=== PATIENT | male | born 1945 | race Caucasian/White ===

== ENCOUNTER 2016-09-20 12:23 | Outpatient (CLI) ==
[2016-07-16 18:51] VITALS: BMI 21.9
--- NOTE | 2016-09-20 13:29 | DI ---
EXAM: Right wrist three-view HISTORY: Pain in right wrist COMPARISON: None FINDINGS: No fracture or dislocation. Severe osteoarthritis of the radiocarpal articulations with complete loss of joint space at the radial scaphoid articulation. Scattered osteoarthritis througho ut the wris with complete or near complete loss of joint space at the capitate lunate articulation w ith mild widening scapholunate distance, may represent early changes of scapholunate advanced collap se. Mild additional areas of mild scattered osteoarthritic change of the wrist and first CMC joint. Atherosclerosis. IMPERSSION: Osteoarthritis with severe osteoarthritis radial scaphoid articulation. Additionally, there are findings as described that may suggest early changes of scapholunate advanced collapse.
== END 2016-09-20 12:24 | disposition home or self-care (01) ==
LOC: RAD 12:23
PROVIDERS: ATTEND General Practice
DX: M25.531 Pain in right wrist (principal)

== ENCOUNTER 2016-10-30 08:28 | Outpatient (CLI) ==
[2016-07-16 18:51] VITALS: BMI 21.9
[2016-10-30 15:11] LABS: BILIRUBIN,URINE Negative (NEGATIVE); KETONES,URINE Negative (NEGATIVE); LEUKOCYTE ESTERASE ,URINE Negative (NEGATIVE); NITRITE,URINE Negative (NEGATIVE); PROTEIN,URINE Negative (NEGATIVE); URINE, BLOOD Negative (NEGATIVE)
[2016-10-30 15:12] LABS: ADD URINE MICROSCOPIC NO
[2016-10-30 15:13] LABS: BASOPHILS % (AUTO) 0.4 % (0.0-3.0); EOSINOPHILS # (AUTO) 0.1 K/ul (0.0-0.7); EOSINOPHILS % (AUTO) 1.9 % (0.0-7.0); HEMATOCRIT 37.6 % (42.0-52.0); HEMOGLOBIN 12.8 g/dl (14.0-18.0); IMMATURE GRANULOCYTE % (AUTO) 0.1 % (0.0-5.0); LYMPHOCYTES # (AUTO) 2.9 K/uL (0.60-3.4); MEAN CORPUSCULAR HEMOGLOBIN 29.2 pg (27.0-31.0); MEAN CORPUSCULAR VOLUME 85.6 fl (80.0-94.0); MONOCYTES # (AUTO) 0.7 K/uL (0.4-2.0); MONOCYTES % (AUTO) 9.9 (0-10); NEUTROPHILS # (AUTO) 3.1 K/ul (2.0-6.9); NEUTROPHILS % (AUTO) 45.7; PLATELET COUNT 257 10^3/uL (140-440); RED BLOOD COUNT 4.39 10^6/ul (4.70-6.10); WHITE BLOOD COUNT 6.86 K/ul (4.2-10.2)
[2016-10-30 16:35] LABS: ALBUMIN 3.9 g/dL (3.4-5.0); ALBUMIN/GLOBULIN RATIO 1.22; BILIRUBIN,TOTAL 0.42 mg/dL (0.00-1.20); BUN/CREATININE RATIO 12.39; CALCIUM 9.4 mg/dL (8.2-10.2); CHOL/HDL RATIO 3.1 (4.5-6.4); CREATININE 1.21 mg/dL (0.60-1.10); TOTAL PROTEIN 7.1 g/dL (5.8-8.1)
== END 2016-10-30 08:29 | disposition home or self-care (01) ==
LOC: LAB 08:28
PROVIDERS: ATTEND General Practice
DX: E11.9 Type 2 diabetes mellitus without complications (principal); E03.9 Hypothyroidism, unspecified; I10 Essential (primary) hypertension; D64.9 Anemia, unspecified; E10.42 Type 1 diabetes mellitus with diabetic polyneuropathy; K59.00 Constipation, unspecified; Z79.899 Other long term (current) drug therapy; Z12.5 Encounter for screening for malignant neoplasm of prostate
CPT/HCPCS: 36415; 80053; 80061; 81001; 83036; 84443; 85025

== ENCOUNTER 2016-11-07 11:11 | Outpatient (CLI) ==
[2016-07-16 18:51] VITALS: BMI 21.9
== END 2016-11-07 11:12 | disposition home or self-care (01) ==
LOC: LAB 11:11
PROVIDERS: ATTEND General Practice
DX: E03.9 Hypothyroidism, unspecified (principal); E10.9 Type 1 diabetes mellitus without complications; I10 Essential (primary) hypertension
CPT/HCPCS: 36415; 84443

== ENCOUNTER 2016-12-05 09:23 | Outpatient (CLI) ==
[2016-07-16 18:51] VITALS: BMI 21.9
[2016-12-05 09:53] LABS: ANION GAP 12.7; BUN/CREATININE RATIO 12.5; CREATININE 1.28 mg/dL (0.60-1.10); POTASSIUM 4.7 mmol/L (3.5-5.1)
== END 2016-12-05 09:24 | disposition home or self-care (01) ==
LOC: LAB 09:23
PROVIDERS: ATTEND Nurse Anesthetist, Certified Registered
DX: Z01.812 Encounter for preprocedural laboratory examination (principal)
CPT/HCPCS: 36415; 80048

== ENCOUNTER 2016-12-13 11:44 | Outpatient (CLI) ==
[2016-07-16 18:51] VITALS: BMI 21.9
== END 2016-12-13 11:45 | disposition home or self-care (01) ==
LOC: LAB 11:44
PROVIDERS: ATTEND General Practice
DX: E03.9 Hypothyroidism, unspecified (principal)
CPT/HCPCS: 36415; 84443

== ENCOUNTER 2017-01-30 12:00 | Outpatient (CLI) ==
[2016-07-16 18:51] VITALS: BMI 21.9
[2017-01-30 13:28] LABS: BILIRUBIN,URINE Negative (NEGATIVE); KETONES,URINE Negative (NEGATIVE); LEUKOCYTE ESTERASE ,URINE Negative (NEGATIVE); NITRITE,URINE Negative (NEGATIVE); PROTEIN,URINE Negative (NEGATIVE); URINE, BLOOD Negative (NEGATIVE)
[2017-01-30 13:43] LABS: ADD URINE MICROSCOPIC NO
[2017-01-30 13:48] LABS: BASOPHILS # (AUTO) 0.1 K/uL (0-0.2); BASOPHILS % (AUTO) 0.9 % (0.0-3.0); EOSINOPHILS # (AUTO) 0.1 K/ul (0.0-0.7); EOSINOPHILS % (AUTO) 2.2 % (0.0-7.0); HEMOGLOBIN 12.7 g/dl (14.0-18.0); IMMATURE GRANULOCYTE % (AUTO) 0.2 % (0.0-5.0); LYMPHOCYTES # (AUTO) 2.6 K/uL (0.60-3.4); LYMPHOCYTES % (AUTO) 44.7 (10.0-50.0); MEAN CORPUSCULAR HEMOGLOBIN 28.7 pg (27.0-31.0); MEAN CORPUSCULAR HGB CONC 33.4 (31.8-35.4); MONOCYTES # (AUTO) 0.5 K/uL (0.4-2.0); MONOCYTES % (AUTO) 9.2 (0-10); NEUTROPHILS # (AUTO) 2.5 K/ul (2.0-6.9); NEUTROPHILS % (AUTO) 42.8; PLATELET COUNT 250 10^3/uL (140-440); RED BLOOD COUNT 4.42 10^6/ul (4.70-6.10); WHITE BLOOD COUNT 5.86 K/ul (4.2-10.2)
[2017-01-30 14:04] LABS: ALBUMIN 3.8 g/dL (3.4-5.0); ALBUMIN/GLOBULIN RATIO 1.31; ANION GAP 12.9; BILIRUBIN,TOTAL 0.59 mg/dL (0.00-1.20); BUN/CREATININE RATIO 19.84; CALCIUM 9.1 mg/dL (8.2-10.2); CHOL/HDL RATIO 2.7 (4.5-6.4); CREATININE 1.26 mg/dL (0.60-1.10); POTASSIUM 4.9 mmol/L (3.5-5.1); TOTAL PROTEIN 6.7 g/dL (5.8-8.1)
== END 2017-01-30 12:01 | disposition home or self-care (01) ==
LOC: LAB 12:00
PROVIDERS: ATTEND General Practice
DX: E03.9 Hypothyroidism, unspecified (principal); E10.9 Type 1 diabetes mellitus without complications; I10 Essential (primary) hypertension; D64.9 Anemia, unspecified; Z79.899 Other long term (current) drug therapy
CPT/HCPCS: 36415; 80053; 80061; 81001; 83036; 84443; 85025

== ENCOUNTER 2017-02-19 08:59 | Outpatient (CLI) ==
[2016-07-16 18:51] VITALS: BMI 21.9
[2017-02-19 15:44] LABS: ALBUMIN 3.8 g/dL (3.4-5.0); ANION GAP 15.7; BUN/CREATININE RATIO 15.65; CALCIUM 9.2 mg/dL (8.2-10.2); CREATININE 1.15 mg/dL (0.60-1.10); PHOSPHORUS 3.2 mg/dL (2.3-3.7); POTASSIUM 4.7 mmol/L (3.5-5.1)
== END 2017-02-19 09:00 | disposition home or self-care (01) ==
LOC: LAB 08:59
PROVIDERS: ATTEND General Practice
DX: I10 Essential (primary) hypertension (principal); Z79.899 Other long term (current) drug therapy
CPT/HCPCS: 36415; 80069

== ENCOUNTER 2017-02-21 08:28 | Outpatient (CLI) ==
[2016-07-16 18:51] VITALS: BMI 21.9
--- NOTE | 2017-02-21 11:08 | CT ---
EXAM: CT of the abdomen pelvis with and without contrast History: Abdominal pain. Comparison: CT abdomen pelvis 09/13/2015 Technique: Multiplanar CT images through the abdomen pelvis were obtained with and without the admi nistration of IV contrast. Enteric contrast was also administered. Findings: Subsegmental atelectasis again seen at the lung bases. No acute osseous abnormalities. No renal stones and no hydronephrosis. The appendix is normal. Atherosclerotic vascular calcificat ions. Penile pump device identified with a balloon inflated and demonstrating some mass effect upon the bladder. No change compared to the prior study. There is no bladder wall thickening. No disc rete gallstones identified by CT. No focal liver or splenic lesions. Pancreatic duct is mildly dil ated measuring up to 5 mm. Common bile duct is dilated measuring 8 mm in caliber. There is atrophy of the pancreas. No renal masses. Moderate colonic stool. No free air. No ascites. Prostate is not enlarged. Adrenal glands are unremarkable. Impression: Dilated common bile duct and dilated pancreatic duct. Recommend correlation with MRI/M [employer] TECHNICIAN of the abdomen to evaluate for subtle obstructing lesion or pancreatic head mass. There is also pancreatic atrophy.
== END 2017-02-21 08:29 | disposition home or self-care (01) ==
LOC: RAD 08:28
PROVIDERS: ATTEND General Practice
DX: R10.9 Unspecified abdominal pain (principal); R11.0 Nausea

== ENCOUNTER 2017-03-19 13:03 | Outpatient (CLI) ==
[2016-07-16 18:51] VITALS: BMI 21.9
== END 2017-03-19 13:04 | disposition home or self-care (01) ==
LOC: LAB 13:03
PROVIDERS: ATTEND General Practice
DX: Z12.5 Encounter for screening for malignant neoplasm of prostate (principal)
CPT/HCPCS: 36415

== ENCOUNTER 2017-03-19 14:09 | Outpatient (CLI) ==
[2016-07-16 18:51] VITALS: BMI 21.9
--- NOTE | 2017-03-20 08:23 | MRI ---
EXAM: Thoracic spine MRI without contrast. HISTORY: Dorsalgia. COMPARISON: Chest CT 08/30/2015, cervical spine MRI 07/03/2016 and chest radiographs 07/16/2016. TECHNIQUE: Multiplanar, multisequence MR images were acquired of the thoracic spine without contras t. FINDINGS: 12 rib-bearing thoracic vertebra are present. There is minor thoracic scoliosis, convex right at T5-6 and convex left at T9-10. There is mild chronic anterior and left lateral wedging of T6 and T7, minor chronic anterior wedging of T11 and mild chronic anterior wedging of T12 and and L1 . Ventral and lateral osteophytes are present in the mid and lower thoracic spine and there is endpl ate irregularity with disc desiccation from T4-5 to L1-2 and disc desiccation from C6-7 to T3-4. Th ere are chronic Schmorl's nodes from T4 to T6 and from T8 to L1. The thoracic cord has normal signal intensity and no syrinx. Canal diameter is normal. There are no paravertebral masses. The partia lly visualized liver, spleen and upper poles of both kidneys are unremarkable. T1-2: There is a dorsal spondylotic ridge that narrows the lateral recesses and anterior inferior n eural foramina bilaterally. There is no central canal stenosis. T2-3, T3-4: The intervertebral discs are normal. There is minor chronic concavity of the anterior superior endplate of T3. T4-5: There is a dorsal spondylotic ridge that is asymmetric to the right which narrows the right l ateral recess. T5-6: The intervertebral disc is normal. T6-7: There is a mild dorsal spondylotic disc bulge and no central canal stenosis or foraminal sten osis. T7-8: There is a dorsal spondylotic disc bulge that effaces the ventral thecal sac and mildly promi nent dorsal epidural fat. This causes mild spinal stenosis and minor left and mild right foraminal stenosis. AP diameter of the thecal sac is 8.7 mm. T8-9: There is a dorsal spondylotic disc bulge that effaces the ventral thecal sac and mildly promp t dorsal epidural fat. This effaces the ventral thecal sac narrows the anterior inferior neural for kristen bilaterally. Bilateral facet and ligamentum flavum hypertrophy is present. There is mild spi nal stenosis and moderate bilateral foraminal stenosis. AP diameter of the thecal sac is 9.3 mm. T9-10: There is a dorsal spondylotic disc bulge and bilateral facet hypertrophy. There is mild to moderate right and moderate left neural foraminal stenosis and mild spinal stenosis. AP diameter of the thecal sac is 9.3 mm. T10-11: The intervertebral disc is normal. There is mild to moderate bilateral foraminal stenosis. T11-12: Intervertebral disc is normal. There is mild to moderate bilateral foraminal stenosis, gre ater on the right. T12-L1: The intervertebral disc is normal. IMPRESSION: 1. Mild thoracic degenerative spondylosis with with small chronic Schmorl's nodes from T4 to T6 and from T8-L1. 2. Mild spinal stenosis T8-9 and T9-10. 3. Moderate bilateral C8-9, mild to moderate right and moderate left T9-10 and mild to moderate marcus ateral T10-11 and T11-12 neural foraminal stenosis. 4. No acute compression fractures.
== END 2017-03-19 14:10 | disposition home or self-care (01) ==
LOC: RAD 14:09
PROVIDERS: ATTEND General Practice
DX: M54.9 Dorsalgia, unspecified (principal)
CPT/HCPCS: 36415

== ENCOUNTER 2017-03-20 16:25 | Outpatient (CLI) ==
[2016-07-16 18:51] VITALS: BMI 21.9
[2017-03-20 21:47] LABS: OCCULT BLOOD INTERNAL QC 1 INTERNAL QC VALID; OCCULT BLOOD SAMPLE 1 NEGATIVE (NEGATIVE)
== END 2017-03-20 16:26 | disposition home or self-care (01) ==
LOC: LAB 16:25
PROVIDERS: ATTEND General Practice
DX: M54.5 Low back pain (principal); M54.9 Dorsalgia, unspecified; R10.9 Unspecified abdominal pain
CPT/HCPCS: 82272

== ENCOUNTER 2017-03-21 09:20 | Outpatient (CLI) ==
[2016-07-16 18:51] VITALS: BMI 21.9
--- NOTE | 2017-03-21 10:18 | CT ---
EXAM: CT chest without contrast. HISTORY: Pneumonia follow-up. Right middle lobe consolidation. Follow-up. COMPARISON: Chest radiograph 07/16/2016. Chest CT 08/30/2015. TECHNIQUE: Multiple axial images of the chest were obtained without intravenous contrast. Images w ere reformatted in the sagittal and coronal planes. FINDINGS: Evaluation for lymphadenopathy is limited by lack of intravenous contrast. Calcified lef t hilar lymph nodes noted. Heart size is normal. There is no pericardial effusion. Atheroscleroti c calcifications are present. Linear consolidation of bronchiectasis in the right middle lobe is stable. Thin linear opacities in the left base are consistent with subsegmental atelectasis. Left lower lobe calcified granuloma no william. No new areas of consolidation, pleural effusion or pneumothorax identified. No acute abnormality detected in the upper abdomen. Degenerative changes present in the spine. Old right rib fractures noted. Since the prior study, there has been no significant interval change. IMPRESSION: Stable right middle lobe scarring. No acute process.
[2017-03-22 15:16] LABS: A/G RATIO 1.4 (0.7-1.7); ALPHA-1 GLOBULIN 0.3 g/dL (0.0-0.4); ALPHA-2 GLOBULIN 0.7 g/dL (0.4-1.0); BETA GLOBULIN 0.8 g/dL (0.7-1.3); TOTAL GLOBULINS 2.8 g/dL (2.2-3.9)
== END 2017-03-21 09:21 | disposition home or self-care (01) ==
LOC: RAD 09:20
PROVIDERS: ATTEND General Practice
DX: M54.9 Dorsalgia, unspecified (principal); M54.5 Low back pain; R10.10 Upper abdominal pain, unspecified; R11.0 Nausea; R53.82 Chronic fatigue, unspecified; R63.4 Abnormal weight loss; J18.1 Lobar pneumonia, unspecified organism
CPT/HCPCS: 36415; 80074; 84165; 86617

== ENCOUNTER 2017-03-28 12:42 | Outpatient (CLI) ==
[2016-07-16 18:51] VITALS: BMI 21.9
== END 2017-03-28 12:43 | disposition home or self-care (01) ==
LOC: LAB 12:42
PROVIDERS: ATTEND General Practice
DX: R10.9 Unspecified abdominal pain (principal); R11.0 Nausea; T14.8 Other injury of unspecified body region; W57.XXXA Bitten or stung by nonvenomous insect and other nonvenomous arthropods, initial encounter
CPT/HCPCS: 36415; 86617

== ENCOUNTER 2017-04-10 13:06 | Outpatient (CLI) ==
[2016-07-16 18:51] VITALS: BMI 21.9
== END 2017-04-10 13:07 | disposition home or self-care (01) ==
LOC: LAB 13:06
PROVIDERS: ATTEND General Practice
DX: M54.5 Low back pain (principal); R63.4 Abnormal weight loss; M25.551 Pain in right hip; R53.83 Other fatigue
CPT/HCPCS: 36415; 86617

== ENCOUNTER 2017-05-09 09:00 | Outpatient (RCR) ==
[2016-07-16 18:51] VITALS: BMI 21.9
--- NOTE | 2017-05-02 11:11 | RS.OPPTEV2 ---
Date of Note: 05/01/17 Visit #: 1 Date of Evaluation: 05/01/17 Payer Source: MEDICARE Treatment Diagnosis: Mid back and right hip pain History of Condition/Mechanism of Injury:: Patient reports progressive mid back pain. States two years a go he was diagnosed with a few compression fractures. A year ago he was thrown from a horse. Prior Level of Function.....Patient was independent with: ADL's, Self Care, Work /Vocation, Caregiving, Ambulation/Mobility, Community Integration/Access Functional Limitations: Sleep, Self Care, ADL's, Reaching, Pushing, Pulling, Lifting, Carrying, Standing, Bending, Squatting, Ambulation, Community Access/ Integration Current Subjective/complaints:: Patient reports mid back pain that has progressively gotten worse. States he has severe pain with positions such as standing at the sink to shave, brush his teeth, wash dishes, or cooking. States pain gets so severe, he can hardly stand it. Reports it does help to lay flat on his back. Reports no radiating pain into the ribs or UE's. States he also has right hip pain. No symptoms in the left hip. States right hip bothers him when he sits or walks. States right hip is currently hurting. States his sleep is significantly reduced due to back pain and stomach discomfort. States he has been having tests for his stomach. He has had continuous nausea and upset stomach, with a weight loss of over 15 lbs. Reports Cancer has been ruled out. 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 Pain Assessment - Pain Description Pain Location: thoracic spine and right hip Current Pain Intensity: 5/10 Worst Pain Intensity: 10/10 Functional Outcome Measure Oswestry LBP: 76 - G Codes & Severity Modifier G Codes & Modifier: Body position current CL. Body position goal CJ Source of G Code score: Oswestry LBP scale Observation - Observation Posture: Forward Head, Rounded Shoulders, Decreased Lumbar Lordosis - ROM Comments: Thoracic and lumbar extension is WFL's. Flexion approximately 50-75% ROM. Reports extension feels better than flexion. Sidebending is WFL's. Sitting trunk rotation is ~50% of normal ROM bilaterally. Supine hooklying lower trunk rotation is 75% of normal ROM. Right hip rotation and flexion is tight compared to the left. - Strength Comments: Trunk strength is 4+/5. Bilateral UE and LE strength 5/5 throughout. - Special Tests KOMAL Test: Negative Left, Negative Right SLR Test: Negative Left, Negative Right Seated Dural Stretch Test: Negative Left, Negative Right SI Joint Compression: Negative Comments: End range IR of right hip causes reproduction of pain. Palpation Comments:: Patient reports tenderness over right Piriformis. Reports no significant tenderness along the thoracic paraspinals or with central PA's to the thoracic vertebrae. Also reports no tenderness throughout the lumbar paraspinals or with central PA's to lumbar vertebrae. Sensation - Sensation Comments: Patient reports neuropathy of bilateral feet present before onset of mid back or right hip pain. Additional Comments: Additional Comments: SLR in supine: right to 30-35 degrees, left 40 degrees. Interventions - Exercise/Activities/Manual Therapy Exercises/Activities: Patient instructed in HS stretch for bilateral LE's and right piriformis stretch. Also given a green theraband and instructed in bilateral shoulder extension and shoulder retraction. Manual Therapy: Na HOME EXERCISE PROGRAM: HS stretch for bilateral LE's and right piriformis stretch. Also given a green theraband and instructed in bilateral shoulder extension and shoulder retraction. - Charges Total Direct Minutes: 50 mins Total Treatment Time: 50 mins Procedures billed for this date of service:: MARY [facility] Assessment Assessment: Patient presents to therapy with a diagnosis of degeneration of lumbar intervertebral disc and right hip pain. His presentation today is with reports of thoracic spine pain and right hip pain. Reports no pain in the low back. He demonstrates significantly tight HS bilaterally, and right hip hypomobility. Demonstrates tenderness over right Piriformis and reproduction of right hip pain with Piriformis on stretch. He shows progress to benefit from spinal strengthening and stability exercises to decrease thoracic spine pain and also stretching and modalities to reduce right hip pain that may be due to Piriformis muscle tightness. Patient Education: Education of diagnosis, Body/Joint mechanics, Home Exercise Program, Education of Plan of Care Rehab Potential: Good Short Term Goals Goal #1: Patient to demo. bilateral SLR to 45 degrees. Goal to be met by: 05/16/17 Goal #2: Pt independent and compliant with initial HEP. Goal to be met by: 05/16/17 Goal #3: Minimal reproduction of symptoms right hip pain with full hip IR. Goal to be met by: 05/16/17 Goal #4: Pt instructed in body mechanics to reduce thoracic spine pain. Goal to be met by: 05/16/17 Care Home Goals Goal #1: Pt knows HEP & demo. understanding of body mechanics/back safety. Goal to be met by: 06/11/17 Goal #2: Score on Oswestry LBP scale improved to <39% impairment. Goal to be met by: 06/11/17 Goal #3: Pt able to perform standing ADL's with min. to no mid back pain. Goal to be met by: 06/11/17 Goal #4: Pt to tolerate sitting and walking without right hip pain. Goal to be met by: 06/11/17 Plan - Treatment to be Provided Procedures: Therapeutic Exercises, Therapeutic Activity, Patient Education Modalities: Electrical Stimulation, Ultrasound/Phonophoresis, Class IV Laser, Cryotherapy, Hot Packs - Treatment Plan Frequency: 2-3X week Duration: 4 weeks ORDER # VISITS AND/OR THROUGH DATE: 06/11/17 - Treatment Code (1) Hip pain Code(s): M25.559 - PAIN IN UNSPECIFIED HIP Qualifiers: Laterality: right Qualified Code(s): M25.551 - Pain in right hip (2) Thoracic spine pain Code(s): M54.6 - PAIN IN THORACIC SPINE Comments: M54.6
--- NOTE | 2017-05-03 10:26 | RS.OPPTDN ---
Subjective Date of Note: 05/03/17 Visit #: 2 Date of Evaluation: 05/01/17 Payer Source: MEDICARE Treatment Diagnosis: Mid back and right hip pain Current Subjective/complaints:: Patient reports the R hip pain was elevating more as he drove to this appt.The back is not hurting currently. Pain Assessment - Pain Description Pain Location: thoracic spine and right hip Pain Description: Tightness, Dull, Aching Current Pain Intensity: 8/10 - Treatment Modality: Ultrasound Parameters/Method Applied: 10 mins. @ 1.5 w/cm2 ,continuous mode to R gluteals, emphasis on the perimeter of the trochanter. Patient Position: Left Sidelying - Heat/Cryotherapy Treatment: Hot Pack (20 mins. prior to US and exercises) Interventions - Exercise/Activities/Manual Therapy Exercises/Activities: 20 mins. pelvic tilts,SKTC,DKTC,piriformis stretches, hamstring stretches.R hip passive IR/ER. Total minutes of Exercise: 20 Manual Therapy: Na Total minutes of Manual Therapy: 0 HOME EXERCISE PROGRAM: HS stretch for bilateral LE's and right piriformis stretch. Also given a green theraband and instructed in bilateral shoulder extension and shoulder retraction. - Charges Total Direct Minutes: 30 Total Treatment Time: 50 Procedures billed for this date of service:: hp,US,ex 1 Assessment: Patient reports no increase in back or hip pain with styretches today.He has good return demo of exercises ,is compliant to HEP.He has moderate R piriformis tightness,compared to the L.The R hip is limited in IR and ER up[ on passive motion. Patient Education: Body/Joint mechanics, Home Exercise Program, Education of Plan of Care Patient demonstrates compliance with HEP?: Yes Short Term Goals Goal #1: Patient to demo. bilateral SLR to 45 degrees. Goal to be met by: 05/16/17 Progress towards Goal:: Progressing Goal #2: Pt independent and compliant with initial HEP. Goal to be met by: 05/16/17 Progress towards Goal:: Progressing Goal #3: Minimal reproduction of symptoms right hip pain with full hip IR. Goal to be met by: 05/16/17 Goal #4: Pt instructed in body mechanics to reduce thoracic spine pain. Goal to be met by: 05/16/17 [facility] Goals Goal #1: Pt knows HEP & demo. understanding of body mechanics/back safety. Goal to be met by: 06/11/17 Progress towards goal: Progressing Goal #2: Score on Oswestry LBP scale improved to <39% impairment. Goal to be met by: 06/11/17 Goal #3: Pt able to perform standing ADL's with min. to no mid back pain. Goal to be met by: 06/11/17 Goal #4: Pt to tolerate sitting and walking without right hip pain. Goal to be met by: 06/11/17 Plan PLAN OF CARE EXPIRES ON:: 06/11/17 ORDER # VISITS AND/OR THROUGH DATE: 06/11/17 PLAN: Continue Plan of Care
--- NOTE | 2017-05-06 09:21 | RS.OPPTDN ---
Subjective Date of Note: 05/06/17 Visit #: 3 Date of Evaluation: 05/01/17 Payer Source: MEDICARE Treatment Diagnosis: Mid back and right hip pain Current Subjective/complaints:: Patient reports moderate R hip pain today, currently has no back pain.He reports sitting approximately 5 mins. elevates the pain . Pain Assessment - Pain Description Pain Location: thoracic spine and right hip Pain Description: Tightness, Dull, Aching Current Pain Intensity: 5/10 - Treatment Modality: Ultrasound Parameters/Method Applied: 10 mins. continuous mode @ 1.5 w/cm 2 to R hip. Patient Position: Left Sidelying - Heat/Cryotherapy Treatment: Hot Pack (20 mins. to R hip prior to US and exercises) Interventions - Exercise/Activities/Manual Therapy Exercises/Activities: 20 mins. pelvic tilts,DKTC,piriformis stretches,hamstring stretches.R hip passive IR/ER. Total minutes of Exercise: 20 Manual Therapy: Na Total minutes of Manual Therapy: 0 HOME EXERCISE PROGRAM: HS stretch for bilateral LE's and right piriformis stretch. Also given a green theraband and instructed in bilateral shoulder extension and shoulder retraction. - Charges Total Direct Minutes: 30 Total Treatment Time: 50 Procedures billed for this date of service:: hp,US,ex 1 Assessment: Patient has improved hip ER with no pain,IR is still limited ,but not painful in short ROM.He has good hamstring extensibility after stretches today.The R piriformis tenderness is present upon palpation today.He is doing the HEP regularly on a daily basis. Patient Education: Education of diagnosis, Body/Joint mechanics, Home Exercise Program, Home Safety, Activity Modification, Education of Plan of Care Patient demonstrates compliance with HEP?: Yes Short Term Goals Goal #1: Patient to demo. bilateral SLR to 45 degrees. Goal to be met by: 05/16/17 Progress towards Goal:: Progressing Goal #2: Pt independent and compliant with initial HEP. Goal to be met by: 05/16/17 Progress towards Goal:: Progressing Goal #3: Minimal reproduction of symptoms right hip pain with full hip IR. Goal to be met by: 05/16/17 Goal #4: Pt instructed in body mechanics to reduce thoracic spine pain. Goal to be met by: 05/16/17 [facility] Goals Goal #1: Pt knows HEP & demo. understanding of body mechanics/back safety. Goal to be met by: 06/11/17 Progress towards goal: Progressing Goal #2: Score on Oswestry LBP scale improved to <39% impairment. Goal to be met by: 06/11/17 Goal #3: Pt able to perform standing ADL's with min. to no mid back pain. Goal to be met by: 06/11/17 Progress towards goal: Progressing Goal #4: Pt to tolerate sitting and walking without right hip pain. Goal to be met by: 06/11/17 Progress towards goal: No Change Plan PLAN OF CARE EXPIRES ON:: 06/11/17 ORDER # VISITS AND/OR THROUGH DATE: 06/11/17 PLAN: Continue Plan of Care
--- NOTE | 2017-05-07 10:42 | RS.OPPTDN ---
Subjective Date of Note: 05/07/17 Visit #: 4 Date of Evaluation: 05/01/17 Payer Source: MEDICARE Treatment Diagnosis: Mid back and right hip pain Current Subjective/complaints:: Patient says his back pain is low to non existant, but R hip pain remains 5/10. States he is performing HEP. Pain Assessment - Pain Description Pain Location: thoracic spine and right hip Pain Description: Tightness, Dull, Aching Current Pain Intensity: 5/10 - Treatment Modality: Ultrasound Parameters/Method Applied: continuous @ 1.5 w/cm2 x 12 mins to R hip Patient Position: Left Sidelying - Heat/Cryotherapy Treatment: Hot Pack (over R hip in sidelying x 20 mins) Interventions - Exercise/Activities/Manual Therapy Exercises/Activities: 20 mins. pelvic tilts,DKTC,piriformis stretches, fig 4, hamstring stretches.R hip passive IR/ER. Manual Therapy: Na HOME EXERCISE PROGRAM: HS stretch for bilateral LE's and right piriformis stretch. Also given a green theraband and instructed in bilateral shoulder extension and shoulder retraction. - Charges Total Direct Minutes: 32 Total Treatment Time: 52 Procedures billed for this date of service:: hp, u/s, ex Assessment: Patient has not experienced pain relief at yet, but does show improved [place] to stretches and increased flexibility of piriformis and hams. Patient Education: Education of diagnosis, Body/Joint mechanics, Home Exercise Program, Home Safety, Activity Modification, Education of Plan of Care Patient demonstrates compliance with HEP?: Yes Short Term Goals Goal #1: Patient to demo. bilateral SLR to 45 degrees. Goal to be met by: 05/16/17 Progress towards Goal:: Progressing Goal #2: Pt independent and compliant with initial HEP. Goal to be met by: 05/16/17 Progress towards Goal:: Progressing Goal #3: Minimal reproduction of symptoms right hip pain with full hip IR. Goal to be met by: 05/16/17 Goal #4: Pt instructed in body mechanics to reduce thoracic spine pain. Goal to be met by: 05/16/17 [facility] Goals Goal #1: Pt knows HEP & demo. understanding of body mechanics/back safety. Goal to be met by: 06/11/17 Progress towards goal: Progressing Goal #2: Score on Oswestry LBP scale improved to <39% impairment. Goal to be met by: 06/11/17 Goal #3: Pt able to perform standing ADL's with min. to no mid back pain. Goal to be met by: 06/11/17 Progress towards goal: Progressing Goal #4: Pt to tolerate sitting and walking without right hip pain. Goal to be met by: 06/11/17 Progress towards goal: No Change Plan PLAN OF CARE EXPIRES ON:: 06/11/17 ORDER # VISITS AND/OR THROUGH DATE: 06/11/17 PLAN: Continue Plan of Care
--- NOTE | 2017-05-09 10:40 | RS.OPPTDN ---
Subjective Date of Note: 05/09/17 Visit #: 5 Date of Evaluation: 05/01/17 Payer Source: MEDICARE Treatment Diagnosis: Mid back and right hip pain Current Subjective/complaints:: Patient reports pain in the right glut has been aggravated today. States riding on the way to town today seemed to increased pain. Patient does report doing more work, including standing, yesterday and doing increased reps of stretching. Pain Assessment - Pain Description Pain Location: thoracic spine and right hip Pain Description: Tightness, Dull, Aching Current Pain Intensity: 5/10 - Treatment Modality: US with ES (Comb.) Parameters/Method Applied: [id number] at 1.5w/cm2 and Estim progressed from 10 to 12p.v. to the right glut at the hamstring origin. Patient Position: Left Sidelying - Heat/Cryotherapy Treatment: Hot Pack ([id number] to the right glut and along the hamstring prior to USCOM and EX. Patient in left side-lying. ) Interventions - Exercise/Activities/Manual Therapy Exercises/Activities: 12mins. Gentle stretching of bilateral hamstring stretches and SKTC, with focus on the right. Right piriformis stretch. Patient education to reduce reps and focus on long gentle stretching. Also, reduce standing and stair climbing to rest inflammed hamstring tendon. Total minutes of Exercise: 12mins Manual Therapy: Na HOME EXERCISE PROGRAM: HS stretch for bilateral LE's and right piriformis stretch. Also given a green theraband and instructed in bilateral shoulder extension and shoulder retraction. - Charges Total Direct Minutes: 24mins Total Treatment Time: 45mins Procedures billed for this date of service:: HP, USCOM, EX Assessment: Patient with exacerbation of pain which may be related to over-use with daily activity and increase in stretching. Patient agrees to reduce activity to rest and only gentle stretching. Patient Education: Body/Joint mechanics, Home Exercise Program Patient demonstrates compliance with HEP?: Yes Short Term Goals Goal #1: Patient to demo. bilateral SLR to 45 degrees. Goal to be met by: 05/16/17 Progress towards Goal:: Progressing Goal #2: Pt independent and compliant with initial HEP. Goal to be met by: 05/16/17 Progress towards Goal:: Progressing Goal #3: Minimal reproduction of symptoms right hip pain with full hip IR. Goal to be met by: 05/16/17 Goal #4: Pt instructed in body mechanics to reduce thoracic spine pain. Goal to be met by: 05/16/17 Skilled Nursing Goals Goal #1: Pt knows HEP & demo. understanding of body mechanics/back safety. Goal to be met by: 06/11/17 Progress towards goal: Progressing Goal #2: Score on Oswestry LBP scale improved to <39% impairment. Goal to be met by: 06/11/17 Goal #3: Pt able to perform standing ADL's with min. to no mid back pain. Goal to be met by: 06/11/17 Progress towards goal: Progressing Goal #4: Pt to tolerate sitting and walking without right hip pain. Goal to be met by: 06/11/17 Progress towards goal: No Change Plan PLAN OF CARE EXPIRES ON:: 06/11/17 ORDER # VISITS AND/OR THROUGH DATE: 06/11/17 PLAN: Continue Plan of Care (Continue modalities with USCOM as patient responds well. Resume progression of exercise when tolerated.)
== END 2017-05-11 ==
PROVIDERS: ATTEND Nurse Practitioner
DX: M51.37 Other intervertebral disc degeneration, lumbosacral region (principal); M25.551 Pain in right hip

== ENCOUNTER 2017-05-22 14:55 | Outpatient (CLI) ==
[2017-03-21 09:24] VITALS: BMI 21.9
[2017-05-22 15:03] LABS: ADD URINE MICROSCOPIC NO; BASOPHILS % (AUTO) 0.6 % (0.0-3.0); BILIRUBIN,URINE Negative (NEGATIVE); EOSINOPHILS # (AUTO) 0.1 K/ul (0.0-0.7); EOSINOPHILS % (AUTO) 1.9 % (0.0-7.0); HEMOGLOBIN 12.5 g/dl (14.0-18.0); KETONES,URINE Negative (NEGATIVE); LEUKOCYTE ESTERASE ,URINE Negative (NEGATIVE); LYMPHOCYTES # (AUTO) 2.5 K/uL (0.60-3.4); LYMPHOCYTES % (AUTO) 39.8 (10.0-50.0); MEAN CORPUSCULAR HEMOGLOBIN 29.7 pg (27.0-31.0); MEAN CORPUSCULAR HGB CONC 33.8 (31.8-35.4); MEAN CORPUSCULAR VOLUME 87.9 fl (80.0-94.0); MONOCYTES # (AUTO) 0.6 K/uL (0.4-2.0); MONOCYTES % (AUTO) 10.1 (0-10); NEUTROPHILS # (AUTO) 2.9 K/ul (2.0-6.9); NEUTROPHILS % (AUTO) 47.6; NITRITE,URINE Negative (NEGATIVE); PH,URINE 6.5 (5-9); PLATELET COUNT 229 10^3/uL (140-440); PROTEIN,URINE Negative (NEGATIVE); RED BLOOD COUNT 4.21 10^6/ul (4.70-6.10); URINE, BLOOD Negative (NEGATIVE); WHITE BLOOD COUNT 6.16 K/ul (4.2-10.2)
[2017-05-22 15:17] LABS: ALBUMIN 3.9 g/dL (3.4-5.0); ALBUMIN/GLOBULIN RATIO 1.18; ANION GAP 8.7; BILIRUBIN,TOTAL 0.32 mg/dL (0.00-1.20); BUN/CREATININE RATIO 17.88; CALCIUM 9.6 mg/dL (8.2-10.2); CHOL/HDL RATIO 2.9 (4.5-6.4); CREATININE 1.23 mg/dL (0.60-1.10); POTASSIUM 4.7 mmol/L (3.5-5.1); TOTAL PROTEIN 7.2 g/dL (5.8-8.1)
== END 2017-05-22 14:56 | disposition home or self-care (01) ==
LOC: LAB 14:55
PROVIDERS: ATTEND General Practice
DX: I10 Essential (primary) hypertension (principal); E10.9 Type 1 diabetes mellitus without complications; Z79.899 Other long term (current) drug therapy
CPT/HCPCS: 36415; 80053; 80061; 81001; 83036; 85025

== ENCOUNTER 2017-06-03 07:45 | Outpatient (CLI) ==
[2017-03-21 09:24] VITALS: BMI 21.9
--- NOTE | 2017-06-03 10:31 | NM ---
EXAM: Hepatobiliary scan HISTORY: Nausea. COMPARISON: None of this type. PROCEDURE: The patient was injected with 5.3 mCi of 99mTc mebrofenin intravenously. Images of the ab domen were obtained at 5 min intervals for 30 minutes. Additional images were obtained at 45 minutes and 1 hour. The patient was then given 8 ounces of BOOST after which images of the gallbladder were obtained to assess gallbladder contraction. FINDINGS: Sequential images demonstrate normal uptake of tracer into the liver. Activity is seen in the intrahepatic biliary ducts at about 10 minutes. The activity appears in the gallbladder at about 45 minutes. Subsequent images demonstrate increasing activity in the gallbladder. Activity first a ppears in the small bowel at 20 minutes. The gallbladder ejection fraction is 39% . IMPRESSION: 1.Normal hepatobiliary scan. 2.The gallbladder ejection fraction is 39% (normal).
== END 2017-06-03 07:46 | disposition home or self-care (01) ==
LOC: RAD 07:45
PROVIDERS: ATTEND General Practice
DX: R11.0 Nausea (principal)

== ENCOUNTER 2017-07-31 12:40 | Outpatient (CLI) | payer OTHER ==
[2017-03-21 09:24] VITALS: BMI 21.9
[2017-07-31 13:33] LABS: BASOPHILS # (AUTO) 0.1 K/uL (0-0.2); BASOPHILS % (AUTO) 0.7 % (0.0-3.0); EOSINOPHILS # (AUTO) 0.2 K/ul (0.0-0.7); EOSINOPHILS % (AUTO) 2.4 % (0.0-7.0); HEMATOCRIT 38.1 % (42.0-52.0); HEMOGLOBIN 12.8 g/dl (14.0-18.0); IMMATURE GRANULOCYTE % (AUTO) 0.3 % (0.0-5.0); LYMPHOCYTES % (AUTO) 42.6 (10.0-50.0); MEAN CORPUSCULAR HEMOGLOBIN 29.5 pg (27.0-31.0); MEAN CORPUSCULAR HGB CONC 33.6 (31.8-35.4); MEAN CORPUSCULAR VOLUME 87.8 fl (80.0-94.0); MONOCYTES # (AUTO) 0.6 K/uL (0.4-2.0); MONOCYTES % (AUTO) 8.8 (0-10); NEUTROPHILS # (AUTO) 3.2 K/ul (2.0-6.9); NEUTROPHILS % (AUTO) 45.2; PLATELET COUNT 237 10^3/uL (140-440); RED BLOOD COUNT 4.34 10^6/ul (4.70-6.10); WHITE BLOOD COUNT 6.97 K/ul (4.2-10.2)
[2017-07-31 13:53] LABS: BILIRUBIN,URINE Negative (NEGATIVE); KETONES,URINE Negative (NEGATIVE); LEUKOCYTE ESTERASE ,URINE Negative (NEGATIVE); NITRITE,URINE Negative (NEGATIVE); PROTEIN,URINE Negative (NEGATIVE); URINE, BLOOD Trace-intact (NEGATIVE)
[2017-07-31 13:58] LABS: ADD URINE MICROSCOPIC YES
[2017-07-31 14:14] LABS: ALBUMIN 3.7 g/dL (3.4-5.0); ALBUMIN/GLOBULIN RATIO 1.23; ANION GAP 12.5; BILIRUBIN,TOTAL 0.4 mg/dL (0.00-1.20); BUN/CREATININE RATIO 16.19; CALCIUM 9.6 mg/dL (8.2-10.2); CHOL/HDL RATIO 2.7 (4.5-6.4); CREATININE 1.05 mg/dL (0.60-1.10); POTASSIUM 4.5 mmol/L (3.5-5.1); TOTAL PROTEIN 6.7 g/dL (5.8-8.1)
== END 2017-07-31 12:41 | disposition home or self-care (01) ==
LOC: LAB 12:40
PROVIDERS: ATTEND General Practice
DX: E03.9 Hypothyroidism, unspecified (principal); I10 Essential (primary) hypertension; R11.0 Nausea; E10.9 Type 1 diabetes mellitus without complications; Z79.899 Other long term (current) drug therapy
CPT/HCPCS: 36415; 80053; 80061; 81001; 83036; 85025

== ENCOUNTER 2017-10-16 10:03 | Outpatient (CLI) | payer OTHER ==
[2017-03-21 09:24] VITALS: BMI 21.9
== END 2017-10-16 10:04 | disposition home or self-care (01) ==
LOC: FCC-LAB 10:03
PROVIDERS: ATTEND General Practice
DX: E03.9 Hypothyroidism, unspecified (principal); E10.9 Type 1 diabetes mellitus without complications; E10.42 Type 1 diabetes mellitus with diabetic polyneuropathy; I10 Essential (primary) hypertension; Z79.899 Other long term (current) drug therapy
CPT/HCPCS: 36415; 80053; 80061; 81001; 83036; 85025

== ENCOUNTER 2018-01-17 10:40 | Outpatient (CLI) ==
[2017-03-21 09:24] VITALS: BMI 21.9
== END 2018-01-17 10:41 | disposition home or self-care (01) ==
LOC: FCC-LAB 10:40
PROVIDERS: ATTEND General Practice
DX: E10.42 Type 1 diabetes mellitus with diabetic polyneuropathy (principal); I10 Essential (primary) hypertension; E03.9 Hypothyroidism, unspecified; Z79.899 Other long term (current) drug therapy
CPT/HCPCS: 36415; 80053; 80061; 81001; 83036; 84443; 85025

== ENCOUNTER 2018-01-31 08:19 | Outpatient (CLI) | payer OTHER ==
[2017-03-21 09:24] VITALS: BMI 21.9
== END 2018-01-31 08:20 | disposition home or self-care (01) ==
LOC: LAB 08:19
PROVIDERS: ATTEND Internal Medicine Endocrinology, Diabetes & Metabolism
DX: E10.65 Type 1 diabetes mellitus with hyperglycemia (principal); E03.9 Hypothyroidism, unspecified
CPT/HCPCS: 36415; 80053; 82043; 82150; 83036; 83690; 84443

== ENCOUNTER 2018-04-30 07:38 | Outpatient (CLI) ==
[2017-03-21 09:24] VITALS: BMI 21.9
== END 2018-04-30 07:39 | disposition home or self-care (01) ==
LOC: LAB 07:38
PROVIDERS: ATTEND Internal Medicine Endocrinology, Diabetes & Metabolism
DX: E10.65 Type 1 diabetes mellitus with hyperglycemia (principal); E03.9 Hypothyroidism, unspecified
CPT/HCPCS: 36415; 80053; 83036; 84443

== ENCOUNTER 2018-05-01 10:26 | Emergency (ER) ==
[2018-05-01 10:35] VITALS: TEMP 98.5; BMI 21.5
--- NOTE | 2018-05-01 11:01 | ED.PDOC ---
General ED Provider: Dr. JOSEPH BLAIR Chief Complaint: Headache Stated Complaint: Severe headache, post injury 3 weeks ago when apparently thrown from a horse and striking the Rt side of his head against the ground or pole. Had head injury 3 yrs ago and sustained a small brain bleed. Was evaluated by Dr Nascimento last week who wanted to order CT scan but patient refuses and deferred to his next apt but pain became unbearable. (10 +/10 ) Time Seen by Physician: 11:10 Mode of Arrival: Walk-In Information Source: Patient Exam Limitations: No limitations Primary Care Provider: LOKESH ONEILLSonja Referred to ED by: Telephone referral Nursing and Triage Documentation Reviewed and Agree: Yes Does patient meet sepsis criteria?: No System Inflammatory Response Syndrome: Not Applicable Sepsis Protocol: For patient's 13 years and over: Temp is 96.8 and below OR 101 and greater Pulse >90 BPM Resp >20/minute Acutely Altered Mental Status Are patient's symptoms suggestive of a new infection, such as: -Pneumonia -Skin, Soft Tissue -Endocarditis -UTI -Bone, Joint Infection -Implantable Device -Acute Abdominal Infection -Wound Infection -Meningitis -Blood Stream Catheter Infection -Unknown Neurological Complaint Exam - Headache Complaint/Exam Onset: Sudden Symptoms Are: Still present Timing: Constant Episodes Lasting: Weeks Worst Headache Ever: Yes Initial Severity: Moderate Current Severity: Severe Location: Diffuse, Right Character: Reports: Dull, Throbbing, Pressure Aggravating: Reports: Exertion, Bright lights Alleviating: Reports: None Associated Signs and Symptoms: Reports: Nausea, Vomiting, Neck pain Related History: Reports: Similar episode SAH Risk Factors: Reports: None Meningitis Risk Factors: Reports: None SDH Risk Factors: Reports: Male, Elderly, Recent trauma Temporal Arteritis Risk Factors: Reports: None Normal Head CT Within Last 12 Months: No Fundoscopic Exam: Present: Normal Findings Papilledema Present: No Temporal Artery Tenderness: Present: None Sinus Tenderness: Present: None TMJ Tenderness: Present: None Meningeal Signs Positive: No Review of Systems - Review Of Systems Constitutional: Reports: No symptoms, Weakness Eyes: Reports: No symptoms, Blindness, Blurred vision Ears, Nose, Mouth, Throat: Reports: No symptoms Respiratory: Reports: No symptoms Cardiac: Reports: No symptoms GI: Reports: No symptoms : Reports: No symptoms Musculoskeletal: Reports: No symptoms, Neck pain Skin: Reports: No symptoms Neurological: Reports: No symptoms, Headache Endocrine: Reports: No symptoms Hematologic/Lymphatic: Reports: No symptoms All Other Systems: Reviewed and Negative Past Medical History - Past Medical History Previously Healthy: Yes Endocrine: Reports: None, DM 1, Dyslipidemia Cardiovascular: Reports: None, Hypertension Respiratory: Reports: None Hematological: Reports: None Gastrointestinal: Reports: None Genitourinary: Reports: None Neuro/Psych: Reports: None, Migraine, Schizophrenia Musculoskeletal: Reports: None, Back Pain Cancer: Reports: None - Surgical History General Surgical History: Reports: None - Family History Family History: Reports: None - Social History Smoking Status: Former smoker Hx Substance Use: No Alcohol Screening: None Physical Exam - Physical Exam Appearance: Well-appearing Ill-appearing: Mild Pain Distress: Mild Eyes: MARGARET, EOMI, Conjunctiva clear ENT: Ears normal, Nose normal, Oropharynx normal Neck: Supple Respiratory: Airway patent, Breath sounds clear, Breath sounds equal, Respirations nonlabored Cardiovascular: RRR, Pulses normal, No rub, No murmur GI/: Soft, Nontender, No masses, Bowel sounds normal, No Organomegaly Musculoskeletal: Normal strength, ROM intact, No edema, No calf tenderness Skin: Warm, Dry, Normal color Neurological: Sensation intact, Motor intact, Reflexes intact, Cranial nerves intact, Alert, Oriented Critical Care Note - Critical Care Note Total Time (mins): 0 Course - Course Hematology/Chemistry: 05/01/18 11:05 05/01/18 11:05 Orders, Labs, Meds: Lab Review 05/01/18 05/01/18 05/01/18 11:05 11:05 11:05 WBC 9.15 RBC 4.26 L Hgb 12.4 L Hct 36.2 L MCV 85.0 MCH 29.1 MCHC 34.3 RDW Coeff of Job 12.8 Plt Count 222 Immature Gran % (Auto) 0.2 Neut % (Auto) 56.7 Lymph % (Auto) 33.9 [place] % (Auto) 8.3 Eos % (Auto) 0.5 Baso % (Auto) 0.4 Immature Gran # (Auto) 0.0 Neut # (Auto) 5.2 Lymph # (Auto) 3.1 [place] # (Auto) 0.8 Eos # (Auto) 0.1 Baso # (Auto) 0.0 PT 10.6 INR 1.06 APTT 25.2 Sodium 132.0 L Potassium 4.86 Chloride 98.4 Carbon Dioxide 27.2 Anion Gap 11.26 BUN 20.5 H Creatinine 1.18 H Estimated GFR (MDRD) 61.00 BUN/Creatinine Ratio 17.37 Glucose 201.2 H Calcium 9.15 Total Bilirubin 0.41 AST 48.9 ALT 32.0 Alkaline Phosphatase 50.5 L Total Protein 7.00 Albumin 4.04 Globulin 2.96 Albumin/Globulin Ratio 1.36 Orders Category Date Time Status CBC W/ AUTO DIFF Stat LAB 05/01/18 11:05 Completed CMP [COMPREHENSIVE METABOLIC PANEL] Stat LAB 05/01/18 11:05 Completed PT WITH INR Stat LAB 05/01/18 11:05 Completed PTT [PARTIAL THROMBOPLASTIN TIME] Stat LAB 05/01/18 11:05 Completed Hydromorphone HCl [Dilaudid 2 mg/ml Sdv] MEDS 05/01/18 12:22 Discontinued 1 mg IM ONCE STA Hydromorphone HCl [Dilaudid 2 mg/ml Sdv] MEDS 05/01/18 14:12 Discontinued 2 mg IM ONCE STA CT HEAD W/O CONTRAST Stat RADS 05/01/18 11:04 Completed Medications Discontinued Medications Generic Name Dose Route Start Last Admin Trade Name Freq PRN Reason Stop Dose Admin Hydromorphone HCl 1 mg 05/01/18 12:22 05/01/18 12:41 Dilaudid 2 Mg/Ml Sdv IM 05/01/18 12:23 1 mg ONCE STA Administration Hydromorphone HCl 2 mg 05/01/18 14:12 05/01/18 14:18 Dilaudid 2 Mg/Ml Sdv IM 05/01/18 14:13 2 mg ONCE STA Administration Vital Signs: Temp Pulse Resp BP Pulse Ox 05/01/18 10:30 98.5 F 63 16 192/89 H 98 Departure - Departure Time of Disposition: 14:20 Disposition: HOME SELF-CARE Discharge Problem: Post-concussion headache Instructions: Acute Headache (ED), Post Concussion Syndrome (ED) Condition: Fair Pt referred to PMD for follow-up: Yes (1 week) IPMP verified?: No Additional Instructions: Take meds as directed Use warm moist heat to side of head and neck IN crease activity as directed Allergies/Adverse Reactions: Allergies No Known Allergies Allergy (Verified 05/01/18 10:37) Home Medications: Ambulatory Orders Polyethylene Glycol 3350 [Miralax] 527 gm PO 1-2XD #527 gr 11/07/16 Hydrocodone/Acetaminophen [[place] 5-325 Tablet] 1 each PO Q6-8H PRN #10 tablet Insulin Aspart [Novolog] 0.5 unit SUBCUT Q1HR 05/01/18
--- NOTE | 2018-05-01 11:53 | CT ---
EXAM: CT Head HISTORY: Blunt head trauma, right ty cranium COMPARISON: None TECHNIQUE: CT head performed without contrast FINDINGS: There is no mass effect, midline shift, or intracranial hemmorhage. Chaidez white differenti ation is preserved. There is no extra-axial collection. The ventricles, sulci, and basal cisterns a re patent and symmetric. There is chronic ischemic disease of the white matter and cerebral volume l oss. There is no depressed calvarial fracture. The mastoid air cells are clear. The visualized para nasal sinuses are clear. There are intracranial atherosclerotic calcifications. IMPRESSION: 1. No acute intracranial abnormality. 2. Chronic ischemic disease of the white matter and cerebral volume loss.
[2018-05-01] MEDS ORDERED: DILAUDID 2 MG/ML SDV IM STA ×2 (12:22→14:12)
[2018-05-01] MEDS ORDERED: ZOFRAN ODT PO STA (14:55)
[2018-05-01 15:08] VITALS: BP 140/80
== END 2018-05-01 15:08 | disposition home or self-care (01) ==
LOC: ED 10:26
DX: G44.319 Acute post-traumatic headache, not intractable (principal); F07.81 Postconcussional syndrome; R11.2 Nausea with vomiting, unspecified; M54.2 Cervicalgia; V80.919A Animal-rider injured in unspecified transport accident, initial encounter; E10.9 Type 1 diabetes mellitus without complications; I10 Essential (primary) hypertension
CPT/HCPCS: 36415; 80053; 85025; 85610; 85730; 96372; 99284

== ENCOUNTER 2018-05-09 06:39 | Outpatient (CLI) | payer OTHER ==
--- NOTE | 2018-05-09 13:14 | NM ---
EXAM: Gastric emptying study HISTORY: Gastroparesis COMPARISON: None. TECHNIQUE: Patient was given 1 mCi of technetium 99m sulfur colloid per oral mixed in scrambled eggs. Anterior and posterior scintigraphic images of the left upper abdomen were obtained up to 3 hours i nterval. FINDINGS: There is essentially no gastric emptying up to 3 hours interval. IMPRESSION: Markedly abnormal study. No definite gastric emptying is seen. This could be due to sev ere diabetic gastroparesis or outlet obstruction.
== END 2018-05-09 06:40 | disposition home or self-care (01) ==
LOC: RAD 06:39
PROVIDERS: ATTEND General Practice
DX: K31.84 Gastroparesis (principal)

== ENCOUNTER 2018-08-21 08:06 | Outpatient (CLI) | payer OTHER | END 2018-08-21 08:07 | disposition home or self-care (01) | LOC: RHC-LAB 08:06 | PROVIDERS: ATTEND General Practice | DX: E03.9 Hypothyroidism, unspecified (principal); I10 Essential (primary) hypertension; D64.9 Anemia, unspecified; E10.9 Type 1 diabetes mellitus without complications; E10.42 Type 1 diabetes mellitus with diabetic polyneuropathy; Z79.899 Other long term (current) drug therapy | CPT/HCPCS: 36415; 80053; 80061; 81001; 83036; 85025 ==

== ENCOUNTER 2018-11-20 07:56 | Outpatient (CLI) | END 2018-11-20 07:57 | disposition home or self-care (01) | LOC: RHC-LAB 07:56 | PROVIDERS: ATTEND General Practice | DX: E03.9 Hypothyroidism, unspecified (principal); I10 Essential (primary) hypertension; D64.9 Anemia, unspecified; E10.9 Type 1 diabetes mellitus without complications; Z79.899 Other long term (current) drug therapy | CPT/HCPCS: 36415; 80053; 80061; 81001; 83036; 84443; 85025 ==

== ENCOUNTER 2018-12-17 20:21 | Emergency (ER) ==
[2018-12-17 20:24] VITALS: BP 172/78; TEMP 97.9; BMI 21.6
[2018-12-17] MEDS ORDERED: SOLU-MEDROL 125 MG IM STA (20:59)
[2018-12-17] MEDS ORDERED: CLARITIN PO STA (20:59)
--- NOTE | 2018-12-17 21:31 | ED.PDOC ---
General ED Provider: Dr. EROS KEENE Chief Complaint: Rash Stated Complaint: c/o of rash with itching for 3 days on arms and face. states he was exposed to some plants. Has tried over the counter medications including benadryl and creams. Time Seen by Physician: 20:30 Mode of Arrival: Walk-In Information Source: Patient Primary Care Provider[facility] Nursing and Triage Documentation Reviewed and Agree: Yes Does patient meet sepsis criteria?: No System Inflammatory Response Syndrome: Not Applicable Sepsis Protocol: For patient's 13 years and over: Temp is 96.8 and below OR 101 and greater Pulse >90 BPM Resp >20/minute Acutely Altered Mental Status Are patient's symptoms suggestive of a new infection, such as: -Pneumonia -Skin, Soft Tissue -Endocarditis -UTI -Bone, Joint Infection -Implantable Device -Acute Abdominal Infection -Wound Infection -Meningitis -Blood Stream Catheter Infection -Unknown Skin Complaint Exam - Skin Rash/Itching Complaint/Exam Onset/Duration: 2 days Symptoms Are: Still present Initial Severity: Moderate Current Severity: Moderate Location: face and extremities Potential Exposures: Reports: Plants Prior Treatment: Benadryl, Calmine lotion Aggravating: Reports: None Alleviating: Reports: None Associated Signs and Symptoms: Denies: Difficulty breathing, Fever, Chills Skin Findings: Present: Urticaria Differential Diagnoses: Allergic Reaction, Contact Dermatitis, Poison Maria A/[place], Urticaria Review of Systems - Review Of Systems Constitutional: Reports: No symptoms Eyes: Reports: No symptoms Ears, Nose, Mouth, Throat: Reports: No symptoms Respiratory: Reports: No symptoms Cardiac: Reports: No symptoms GI: Reports: No symptoms : Reports: No symptoms Musculoskeletal: Reports: No symptoms Skin: Reports: Rash Neurological: Reports: No symptoms Endocrine: Reports: No symptoms Hematologic/Lymphatic: Reports: No symptoms All Other Systems: Reviewed and Negative Past Medical History - Past Medical History Previously Healthy: Yes Endocrine: Reports: None, DM 1, Dyslipidemia Cardiovascular: Reports: None, Hypertension Respiratory: Reports: None Hematological: Reports: None Gastrointestinal: Reports: None Genitourinary: Reports: None Neuro/Psych: Reports: None, Migraine, Schizophrenia Musculoskeletal: Reports: None, Back Pain Cancer: Reports: None - Surgical History General Surgical History: Reports: None - Family History Family History: Reports: None - Social History Smoking Status: Former smoker Hx Substance Use: No Alcohol Screening: None Physical Exam - Physical Exam Appearance: Well-appearing, No pain distress, Well-nourished Eyes: MARGARET, EOMI, Conjunctiva clear ENT: Ears normal, Nose normal, Oropharynx normal Respiratory: Airway patent, Breath sounds clear, Breath sounds equal, Respirations nonlabored Cardiovascular: RRR, Pulses normal, No rub, No murmur GI/: Soft, Nontender, No masses, Bowel sounds normal, No Organomegaly Musculoskeletal: Normal strength, ROM intact, No edema, No calf tenderness Skin: Warm, Dry Neurological: Sensation intact, Motor intact, Reflexes intact, Cranial nerves intact, Alert, Oriented Psychiatric: Affect appropriate, Mood appropriate Re-Evaluation - Re-Evaluation Time of Re-Evaluation: 21:25 Status: Improved Skin: Other (rash improved) Critical Care Note - Critical Care Note Total Time (mins): 0 Course - Course Orders, Labs, Meds: Orders Category Date Time Status Loratadine [Claritin] MEDS 12/17/18 20:59 Discontinued 10 mg PO ONCE STA Methylprednisolone Sod Succ/Pf [Solu-Medrol 125 mg] MEDS 12/17/18 20:59 Discontinued 125 mg IM ONCE STA Medications Discontinued Medications Generic Name Dose Route Start Last Admin Trade Name Freq PRN Reason Stop Dose Admin Loratadine 10 mg 12/17/18 20:59 12/17/18 21:07 Claritin PO 12/17/18 21:00 10 mg ONCE STA Administration Methylprednisolone Sodium Succinate 125 mg 12/17/18 20:59 12/17/18 21:07 Solu-Medrol 125 Mg IM 12/17/18 21:00 125 mg ONCE STA Administration Vital Signs: Temp Pulse Resp BP Pulse Ox 12/17/18 20:21 97.9 F 69 20 172/78 H 97 Departure - Departure Time of Disposition: 21:30 Disposition: HOME SELF-CARE Discharge Problem: Pruritic rash, Poison maria a dermatitis Instructions: Poison Maria A (ED) Condition: Fair Pt referred to PMD for follow-up: Yes IPMP verified?: Yes Additional Instructions: Take Medications as prescribed Follow up with PCP in 3 days continue over the counter Benadryl Prescriptions: Prednisone 20 mg PO DAILYWM #5 tablet Allergies/Adverse Reactions: Allergies No Known Allergies Allergy (Verified 12/17/18 20:24) Home Medications: Ambulatory Orders Prednisone 20 mg PO DAILYWM #5 tablet 12/17/18 Disposition Discussed With: Patient
== END 2018-12-17 21:20 | disposition home or self-care (01) ==
LOC: ED 20:21
DX: L23.7 Allergic contact dermatitis due to plants, except food (principal)
CPT/HCPCS: 96372; 99282